=== PATIENT | female | born 1995 | race Caucasian/White ===

== ENCOUNTER 2018-01-26 02:49 | Outpatient (CLI) | payer BC, SELFPAY ==
--- NOTE | 2018-01-26 10:25 | MERGE_ITS ---
*[facility] [place]* *[facility]* [address] [place] [address] Date of study: 01/26/2018 Transthoracic Echocardiography M-mode, complete 2D, complete spectral Doppler, and color Doppler *STUDY CONCLUSIONS* Summary: 1. Left ventricle: The cavity size was normal. Wall thickness was normal. Systolic function was normal. The estimated ejection fraction was 60-65%. Wall motion was normal; there were no regional wall motion abnormalities. 2. Aortic valve: Trileaflet. 3. Aorta: The aorta was not dilated; however, the proximal ascending aorta was not well visualized. 4. Mitral valve: Structurally normal valve. 5. Right ventricle: The cavity size was normal. Wall thickness was normal. Systolic function was normal. 6. Pulmonary arteries: Systolic pressure could not be accurately estimated. 7. Pericardium, extracardiac: A trivial pericardial effusion was identified along the right ventricular free wall. *PATIENT PRESENTATION* Height: 152.4cm ((60in) ) S/D Pressure: 92 / 56 Weight: 63.5kg ((139.7lb) ) BSA: 1.66m^2 Test start time: 10:40 AM. Test stop time: 11:40 AM. 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 This study was interpreted by [facility]. Pertinent images and digital data are archived for permanent storage and are available for subsequent review. No prior study was available for comparison. Study status: Routine. Transthoracic echocardiography. M-mode, complete 2D, complete spectral Doppler, and color Doppler. A Transthoracic Echocardiogram was performed. Scanning was performed from the parasternal, apical, subcostal, and suprasternal notch acoustic windows. Images were obtained using an [id number] cardiac ultrasound machine. Study completion: The patient tolerated the procedure well. There were no complications. History: PMH: Systemic involvement of connective tissue. R/o aortic dilation, MVR: ? Connective tissue disorder. *CARDIAC ANATOMY* Left ventricle: The cavity size was normal. Wall thickness was normal. Systolic function was normal. The estimated ejection fraction was 60-65%. Wall motion was normal; there were no regional wall motion abnormalities. Diastolic parameters were normal. Aortic valve: Trileaflet; normal thickness leaflets. Mobility was not restricted. Doppler: Transvalvular velocity was within the normal range. There was no stenosis. There was no significant regurgitation. VTI ratio of LVOT to aortic valve: 0.79. Valve area (VTI): 2.2cm^2. Indexed valve area (VTI): 1.3cm^2/m^2. Peak velocity ratio of LVOT to aortic valve: 0.74. Valve area (Vmax): 2.1cm^2. Indexed valve area (Vmax): 1.3cm^2/m^2. Mean velocity ratio of LVOT to aortic valve: 0.88. Valve area (Vmean): 2.5cm^2. Indexed valve area (Vmean): 1.5cm^2/m^2. Mean gradient (S): 4.7mm Hg. Peak gradient (S): 8.9mm Hg. Aorta: The aorta was not dilated; however, the proximal ascending aorta was not well visualized. Aortic root: The aortic root was not dilated. Ascending aorta: The ascending aorta was poorly visualized. Aortic arch: The aortic arch was not dilated. Descending aorta: The descending aorta was not dilated. Abdominal aorta: The abdominal aorta was not dilated. Mitral valve: Structurally normal valve. Mobility was not restricted. No echocardiographic evidence for prolapse. Doppler: Transvalvular velocity was within the normal range. There was no evidence for stenosis. There was trivial regurgitation. Valve area by pressure half-time: 3.6cm^2. Indexed valve area by pressure half-time: 2.1cm^2/m^2. Peak gradient (D): 3.4mm Hg. Left atrium: The atrium was normal in size. Right ventricle: The cavity size was normal. Wall thickness was normal. Systolic function was normal. Pulmonic valve: Structurally normal valve. Doppler: Transvalvular velocity was within the normal range. There was no evidence for stenosis. There was trivial regurgitation. Peak gradient (S): 5.2mm Hg. Tricuspid valve: Structurally normal valve. Doppler: Transvalvular velocity was within the normal range. There was no evidence for stenosis. There was no significant regurgitation. Pulmonary artery: Systolic pressure could not be accurately estimated. Right atrium: The atrium was normal in size. Pericardium: A trivial pericardial effusion was identified along the right ventricular free wall. Systemic veins: Inferior vena cava: Well visualized. The vessel was patent and normal in size. The respirophasic diameter changes were in the normal range (greater than or equal to 50%). Baseline ECG: Normal sinus rhythm. Measurements Left ventricle Value Reference LV ID, ED, PLAX 3.9 cm 3.5 - 6.0 LV ID, ES, PLAX 2.7 cm 2.1 - 4.0 LV PW thickness, ED, PLAX 0.7 cm LV end-diastolic volume, 1-p A2C 44 ml LV ejection fraction, 1-p A2C 60 % LV end-diastolic volume, 1-p A4C 57 ml LV ejection fraction, 1-p A4C 61 % LV e', lateral 0.163 m/sec LV E/e', lateral 6 LV e', medial 0.125 m/sec LV E/e', medial 7 LV e', average 0.144 m/sec LV E/e', average 6 Ventricular septum Value Reference IVS thickness, ED, PLAX 0.8 cm LVOT Value Reference LVOT ID, A-P 1.9 cm LVOT area 2.8 cm^2 LVOT peak velocity, S 1.11 m/sec LVOT mean velocity, S 0.91 m/sec LVOT VTI, S 26.9 cm LVOT peak gradient, S 4.9 mm Hg LVOT mean gradient, S 3.5 mm Hg Stroke volume (SV), LVOT DP 75 ml Stroke index (SV/bsa), LVOT DP 45 ml/m^2 Aortic valve Value Reference Aortic valve peak velocity, S 1.5 m/sec Aortic valve mean velocity, S 1.02 m/sec Aortic valve VTI, S 34.0 cm Aortic mean gradient, S 4.7 mm Hg Aortic peak gradient, S 8.9 mm Hg VTI ratio, LVOT/AV 0.79 Aortic valve area, VTI 2.2 cm^2 Velocity ratio, peak, LVOT/AV 0.74 Aortic valve area, peak velocity 2.1 cm^2 Velocity ratio, mean, LVOT/AV 0.88 Aortic valve area, mean velocity 2.5 cm^2 Aortic valve area/bsa, mean velocity 1.5 cm^2/m^2 Aorta Value Reference Aortic root ID, ED 2.0 cm Ascending aorta ID, A-P, S 2.1 cm RVOT Value Reference RVOT VTI, S 21.6 cm Left atrium Value Reference LA ID, A-P, ES 3.2 cm LA ID/bsa, A-P 1.9 cm/m^2 <=2.2 LA area, ES, A4C 10.6 cm^2 8.8 - 23.4 LA area, ES, A2C 9 cm^2 LA volume/bsa, ES, 1-p A4C 15 ml/m^2 LA volume, ES, 2-p 19 ml LA volume/bsa, ES, 2-p 12 ml/m^2 LA/aortic root ratio 1.58 Mitral valve Value Reference Mitral E-wave peak velocity 0.93 m/sec Mitral A-wave peak velocity 0.35 m/sec Mitral deceleration time 214 ms 150 - 230 Mitral pressure half-time 62 ms Mitral peak gradient, D 3.4 mm Hg Mitral E/A ratio, peak 2.63 Mitral valve area, PHT, DP 3.6 cm^2 Pulmonary veins Value Reference Pulmonary vein peak velocity, S 0.52 m/sec Pulmonary vein peak velocity, D 0.78 m/sec Pulmonary vein velocity ratio, peak, 0.66 S/D Pulmonary vein A-wave reversal peak 0.32 m/sec velocity Tricuspid valve Value Reference Tricuspid regurg peak velocity 1.8 m/sec Tricuspid peak RV-RA gradient 12.4 mm Hg Right atrium Value Reference RA area, ES, A4C 8.7 cm^2 8.3 - 19.5 Pulmonic valve Value Reference Pulmonic peak gradient, S 5.2 mm Hg Legend: (L) and (H) mor values outside specified reference range. I have personally reviewed the images and have reviewed and edited the reported findings. Electronically signed by Kenton Beltran 01/26/2018 12:38
== END 2018-01-26 03:09 ==
PROVIDERS: PCP Nurse Practitioner Family; Visit Provider Nurse Practitioner Family
DX: M35.9 Systemic involvement of connective tissue, unspecified (principal); I34.0 Nonrheumatic mitral (valve) insufficiency; I31.3 Pericardial effusion (noninflammatory)
CPT/HCPCS: 93306

== ENCOUNTER 2018-06-27 08:46 | Outpatient (REF) | payer BC, SELFPAY | END 2018-06-27 09:06 | LOC: LBN 08:46 | PROVIDERS: PCP Nurse Practitioner Family; Visit Provider Nurse Practitioner Adult Health | DX: R35.0 Frequency of micturition (principal) | CPT/HCPCS: 87077; 87086; 87186 ==

== ENCOUNTER 2018-07-27 17:42 | Emergency (ER) | payer BC, SELFPAY ==
[2018-07-27] VITALS (24 sets, daily range): BP systolic 104–136; BP diastolic 53–75; PULSE 71–114; RESP 15–22; TEMP 36.4–36.6; O2SAT 98–100
--- NOTE | 2018-07-27 18:12 | W.ED.GENAD ---
Discharge Plan Disposition Patient Disposition: HOME Condition: Stable Discharge Details Chief Complaint: AMS/LOC Clinical Impression: Syncope Reason For Visit: fainted Primary Care Provider: Linda Hernandez ED Provider: Lisa Palomino Home Meds and New Rx's Prescriptions: No Action norgestimate-ethinyl estradiol [Ely] 0.25-35 mg-mcg tablet 1 tab PO DAILY RF: 0 multivitamin tablet 1 tab PO DAILY RF: 0 nitrofurantoin monohyd/m-cryst [Macrobid] 100 mg capsule 100 mg PO BID Qty: 14 RF: 0 Discharge Instructions Instructions: Holter Monitoring (ED), Syncope (ED) Additional Instructions: Please return immediately to the emergency department if you develop any new or worsening symptoms or if you become otherwise concerned. It is extremely important that you make an appointment to be seen in follow-up by your primary care doctor soon as possible Referrals: Linda Hernandez, CH[employer]ING [employer] OPERATOR [Primary Care Provider] - Discharge Data Discharge Date/Time-TO BE ENTERED AT DEPARTURE: 07/27/18 21:09 Medical Decision Making Rita Garcia is a 23 y/o woman with h/o jaquan-danlos syndrome, GERD who presented to the emergency department after syncopal episode while standing and having a new tattoo cleaned by her boyfriend, per patient this experience was not painful. She did have preceding symptoms. There was no trauma. On exam patient is very well and nontoxic appearing. She has benign neurologic exam is benign cardiopulmonary exam. Suspect orthostatic versus vasovagal syncope, possible arrthmia. Doubt PE, low risk. Exam/hx not c/w myocarditis, ACS, sepsis, acute aortic pathology. Plan for EKG, CXR, screening labs, IVF hydration, telemetry. CR CHEST 2 VIEWS PA,LAT 08/31/2017 11:49 PM FINDINGS: Lungs: Unremarkable. No consolidation. Pleural space: Unremarkable. No pleural effusion. No pneumothorax. Heart/Mediastinum: Unremarkable. No cardiomegaly. Bones/joints: Unremarkable. IMPRESSION: No acute findings. Labs non-diagnostic. EKG okay. CXR neg. Pt feeling much better, ambulating about the ED without issue, no further lightheadedness, taking PO without issue, states she is ready for d/c to home. Plan for zio patch. I had a lengthy discussion with the Pt re: RTED precautions and importance of outpt f/u. Pt verbalized understanding of the plan and was amenable. Medical Records Medical records reviewed: Yes I reviewed the patient's medical records. Lab Data Lab results reviewed: Yes I reviewed the patient's lab results. ECG Data Attestation: I personally reviewed and interpreted this ECG (s) as follows: Interpretation: EKG shows sinus rhythm at 85, normal axis, no acute ischemic changes, no HOCM, no Brugada, no WPW, no long QT, nondiagnostic EKG HPI General Mode of arrival: ambulatory. Date/Time Provider Initiated Documentation: 07/27/18 18:12. Limitations to Documentation: no limitations. Information obtained by: patient, RN notes reviewed and old records reviewed. HPI Narrative: Rita Garcia is a 23 y/o woman with history of Jaquan-Danlos syndrome, GERD presenting to the emergency department with syncope. Patient reports that she has been feeling tired today but otherwise in her usual state of health. She got a tattoo earlier in the day. Several hours later she was at home standing in the kitchen with her boyfriend, who was washing the tattoo which is on her right upper back. Patient reports that while her boyfriend was watching a tattoo, she developed tunnel vision, ringing in her ears, nausea and began to feel lightheaded as if she would faint. Patient reports that she told her boyfriend she was feeling this way, at which point she lost consciousness and he caught her and lowered her to the ground. Her boyfriend accompanies her, and reports that patient was unconscious for less than a minute. There was no postictal state afterwards. No tongue biting or incontinence. Patient reports that she has not fainted in the past. She denies palpitations or any pain preceding the syncopal episode. Patient reports that she currently feels somewhat nauseous and lightheaded. She denies any pain, vomiting, fever, rash, focal weakness, shortness of breath, cough. No recent illness, has been in her usual state of health. No recent travel. Patient reports that she has never had lightheadedness, palpitations, chest pain, or unusual shortness of breath during exertion. Her mother did of sudden cardiac at age 50. Related Data Home Medications Medication Instructions Recorded Confirmed multivitamin tablet 1 tab PO DAILY 08/03/18 08/03/18 nitrofurantoin 100 mg PO BID #14 cap 08/03/18 08/03/18 monohydrate/macrocrystals 100 mg capsule norgestimate 0.25 mg-ethinyl 1 tab PO DAILY 08/03/18 08/03/18 estradiol 35 mcg tablet Previous Rx's Medication Instructions Recorded nitrofurantoin 100 mg PO BID #14 cap 08/03/18 monohydrate/macrocrystals 100 mg capsule Allergies Allergy/AdvReac Type Severity Reaction Status Date / Time Sulfa (Sulfonamide Allergy Intermediate Hives Verified 08/03/18 09:02 Antibiotics) almond AdvReac Intermediate hives/itchy Verified 08/03/18 09:02 /cranky ciprofloxacin [From Cipro] AdvReac Mild Verified 08/03/18 09:02 General Stated Complaint: AMS/LOC CRISTINA: 2 Review of Systems Review of Systems Constitutional: denies fevers Eyes: denies eye pain ENT: denies facial pain, dental pain, sore throat Cardiovascular: denies chest pain, edema, Reports syncope Respiratory: denies SOB, cough GI: denies abdominal pain, vomiting, diarrhea : denies flank pain MSK: denies back pain, neck pain, arthralgias, myalgias Skin: denies rash Neuro: denies headaches, numbness, weakness PFSH Medical History Jaquan-Danlos syndrome (Chronic) Anxiety Chronic uveitis of both eyes Depression Recurrent urinary tract infection Social History Smoking/Tobacco Use Status: Never Alcohol Intake: current Alcohol Intake frequency: holidays/special occasions only Drug use: Never Substance use type: does not use Adopted: No Caregiver/Support person: No Foster care: No Household members: significant other Housing: house Number of Children: 0 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[employer] Sexually active: Yes Current gender identity: female Seatbelt use: always Do you feel safe in your relationship?: Yes Exam Narrative Exam Narrative: Constitutional: well and [id number], pleasant, conversing normally HENT: head atraumatic/normocephalic/normal inspection, mucous membranes moist Eyes: conjunctiva normal, sclera normal, pupils 3mm b/l Neck: no stridor, normal ROM, trachea midline Chest: normal inspection Resp: normal work of breathing, LCTAB Cardio: normal rate, normal rhythm, no murmur appreciated GI: abdomen soft, non-tender, non-distended Back: normal inspection, no rash, acute right upper back without erythema or drainage Skin: warm, dry, normal color, no rash Neuro: alert, not altered, grossly non-focal, normal tone Ext: no edema, no posterior calf tenderness to palpation Psych: normal mood, normal affect, normal behavior Course Vital Signs Temperature 36.6 C 07/27/18 17:54 Pulse 80 07/27/18 17:54 Respiratory Rate 16 07/27/18 17:54 Blood Pressure 136/66 07/27/18 17:54 Pulse Oximetry 100 07/27/18 17:54 Temperature 36.6 C 07/27/18 17:54 Temperature Source Temporal Artery Scan 07/27/18 17:54 Pulse 80 07/27/18 17:54 Respiratory Rate 16 07/27/18 17:54 Respiratory Effort 07/27/18 17:57 Blood Pressure 136/66 07/27/18 17:54 Blood Pressure Position Supine 07/27/18 17:54 Pulse Oximetry 100 07/27/18 17:54 Oxygen Delivery Method Room Air 07/27/18 17:54 Oxygen Flow Rate 0 07/27/18 17:54 Pain Level 0 07/27/18 17:54
[2018-07-27 19:01] LABS: Abs Immature Grans 0.04 k/cumm (0.0-0.09); Absolute Basophil Count 0.05 k/cumm (0.0-0.2); Absolute Eosinophil Count 0.55 k/cumm (0.0-0.7); Absolute Monocyte Count 1.31 k/cumm (0.11-0.7); Basophils % 0.3; Eosinophils % 3.5; HCT 41.8 % (36.0-46.0); HGB 14.3 g/dL (12.0-15.5); Immature Grans % 0.3; Lymphocytes % 14.1; Mean Corp. HGB Concentration 34.2 g/dL (32.0-36.0); Mean Corpuscular Hemoglobin 31.3 pg (27.0-33.0); Mean Corpuscular Volume 91.5 fL (80-95); Mean Platelet Volume 11.4 fL (8.0-11.0); Monocytes % 8.3; Neutrophils % 73.5; Platelet Count 266 x1000/uL (130-400); RBC 4.57 m/cumm (4.00-5.20); White Blood Cell Count 15.78 k/cumm (4.4-10.8)
[2018-07-27 19:03] LABS: Absolute Lymphocyte Count 2.22 k/cumm (1.2-3.4)
[2018-07-27 19:16] LABS: ALT 17 U/L (12-78); AST 14 U/L (15-37); Albumin 3.5 g/dL (3.4-5.0); Alkaline Phosphatase 85 U/L (46-116); Anion Gap 8.3 mmol/L (3-11); BUN 18 mg/dL (7-18); Bilirubin, Total 0.8 mg/dL (0.2-1.0); CO2 27.7 mmol/L (21.0-32.0); CREATININE 0.83 mg/dL (0.55-1.02); Calcium 8.4 mg/dL (8.5-10.1); Chloride 104 mmol/L (98-107); Glucose 97 mg/dL (70-100); Potassium 3.7 mmol/L (3.5-5.1); Sodium 140 mmol/L (136-145); Total Protein 7.2 g/dL (6.4-8.2)
[2018-07-27 19:20] LABS: D-Dimer 357 ng/mlFEU (<500)
[2018-07-27 19:41] LABS: Bilirubin Negative (Negative); Blood Trace-lysed (Negative); Clarity Clear; Glucose Negative (Negative); Ketones Negative (Negative); Leukocyte Esterase Negative (Negative); Nitrite Negative (Negative); Specific Gravity >= 1.030 (1.005-1.025); Urobilinogen 0.2 EU/dL (Up TO 0.2); pH 5.5 (5-8)
[2018-07-27 19:50] LABS: Bacteria Rare HPF (Negative); C & S Indicated? No; Casts Negative LPF (Negative); Crystals Negative HPF (Negative); Epithelial Cells Negative HPF (Negative); Mucus Negative (Negative); Other Cells Negative (Negative); RBC 0-2 (0-2); WBC Negative HPF (0-5)
--- NOTE | 2018-07-27 20:00 | DI.RAD_ITS ---
SYMPTOM/DIAGNOSIS: SYNCOPE CHEST, PA AND LATERAL: Comparison 08/31/17 The heart is normal in size. The lungs are clear. The mediastinal structures and pleura appear intact. CONCLUSION: Normal chest.
--- NOTE | 2018-07-27 20:37 | DI.VRAD_ITS ---
EXAM: XR Chest, 2 Views EXAM DATE/TIME: 07/27/2018 6:40 PM CLINICAL HISTORY: 23 years old, female; Signs and symptoms; Other: Syncope; Additional info: Not . TECHNIQUE: XR of the chest, 2 views. COMPARISON: CR CHEST 2 VIEWS PA,LAT 08/31/2017 11:49 PM FINDINGS: Lungs: Unremarkable. No consolidation. Pleural space: Unremarkable. No pleural effusion. No pneumothorax. Heart/Mediastinum: Unremarkable. No cardiomegaly. Bones/joints: Unremarkable. IMPRESSION: No acute findings. Dictated and Authenticated by: Chapin Cohen MD. Ordering:CRESENCIO Gonzalez MD
[2018-07-27] MEDS: Ondansetron 4 MG/2 ML VIAL IVP (20:56)
--- NOTE | 2018-08-08 10:24 | ZIOP_ITS ---
DATE OF DICTATION: August 08, 2018 [facility] MONITOR REPORT MONITOR IN PLACE 3 days, 19 hours, July 27-2018 Baseline rhythm sinus. Rare single PAC. No SVT or atrial fibrillation. Rare single PVC. No VT. No bradycardia or block. Eight triggered events, all occurring during sinus rhythm 85-130 bpm. Eight symptomatic episodes recorded. Lightheadedness, dizziness, pounding, shortness of breath, anxi ous, chest pain/pressure, all noted during sinus rhythm 80-130 bpm. Average heart rate sinus 82 bpm, range 46-164 bpm.
== END 2018-07-27 21:09 | disposition home or self-care (01) ==
PROVIDERS: Emergency Provider Student in an Organized Health Care Education/Training Program; PCP Nurse Practitioner Family
DX: R55 Syncope and collapse (principal)
CPT/HCPCS: 0296T; 36415; 80053; 93005; 96374; 99285; 71046; 81003; 81015; 85025; 85379; 93010; J2405

== ENCOUNTER 2018-08-03 11:12 | Outpatient (REF) | payer BC, SELFPAY | END 2018-08-03 11:32 | LOC: LBN 11:12 | PROVIDERS: PCP Nurse Practitioner Family; Visit Provider Nurse Practitioner Family | DX: N39.0 Urinary tract infection, site not specified (principal) | CPT/HCPCS: 87077; 87086; 87186 ==

== ENCOUNTER 2018-09-14 11:29 | Outpatient (REF) | payer BC, SELFPAY ==
[2018-09-14 11:56] LABS: Bilirubin Negative (Negative); Blood Negative (Negative); Clarity Cloudy; Glucose Negative (Negative); Ketones Trace mg/dL (Negative); Leukocyte Esterase Small (Negative); Nitrite Positive (Negative); Specific Gravity >= 1.030 (1.005-1.025); Urobilinogen 0.2 EU/dL (Up TO 0.2); pH 5.5 (5-8)
[2018-09-14 12:20] LABS: Epithelial Cells Few HPF (Negative); RBC Negative (0-2)
[2018-09-14 12:21] LABS: C & S Indicated? C&S Done As Ordered; Crystals Moderate Amorphous HPF (Negative); Mucus Trace (Negative)
== END 2018-09-14 11:49 ==
LOC: LBN 11:29
PROVIDERS: PCP Nurse Practitioner Family; Visit Provider Nurse Practitioner Gerontology
DX: N39.0 Urinary tract infection, site not specified (principal)
CPT/HCPCS: 87077; 81003; 81015; 87086; 87186

== ENCOUNTER 2018-10-30 16:52 | Emergency (ER) | payer BC, SELFPAY ==
[2018-10-30 17:00] VITALS: BP 115/56; PULSE 79; RESP 18; TEMP 37; O2SAT 100
[2018-10-30 17:04] LABS: Bilirubin Negative (Negative); Blood Negative (Negative); Clarity Clear; Glucose 100 mg/dL (Negative); Ketones Negative (Negative); Leukocyte Esterase Trace (Negative); Nitrite Positive (Negative)
--- NOTE | 2018-10-30 17:12 | ED.GENADUL_ITS ---
Discharge Plan Disposition Patient Disposition: HOME Condition: Stable Discharge Details Chief Complaint: Urinary Clinical Impression: Recurrent UTI (urinary tract infection) Primary Care Provider: Linda Hernandez ED Provider: Constantine Wasserman Home Meds and New Rx's Prescriptions: New nitrofurantoin monohyd/m-cryst [Macrobid] 100 mg capsule 100 mg PO BID Qty: 10 RF: 0 Continued norgestimate-ethinyl estradiol [Ely] 0.25-35 mg-mcg tablet 1 tab PO DAILY RF: 0 multivitamin tablet 1 tab PO DAILY RF: 0 albuterol sulfate 90 mcg/actuation HFA aerosol inhaler 2 puff IH Q6H PRN (Reason: shortness of breath or wheezing) Qty: 8.5 RF: 5 Discharge Instructions Instructions: Urinary Tract Infection in Women (ED) Additional Instructions: Please continue to stay well-hydrated and follow-up with urology as needed. Take antibiotic until fully complete and feel free to return to the emergency department for any new or significant worsening of symptoms or any further concerns you may have. Stand Alone Forms: Work Release Referrals: Bernabe Peace MD [ [facility] STAFF PHYSICIAN] - (As needed for reassessment) Medical Decision Making Patient presenting to the emergency department for concern of urinary tract infection. Patient has a long ongoing history of recurrent urinary tract infections which have seen her multiple times for in the past. Patient states 3 days ago she had some intermittent nausea that she thought was may be a GI illness. Then yesterday she had persistent subjective fevers and nausea and then awoke this morning with burning urination. Patient states burning urination is similar to when she has had urinary tract infections in the past. She denies any vomiting or diarrhea, belly pain, or any other associated symptoms. Physical exam is unremarkable and shows no CVA tenderness patient is nontoxic and stable. Urinalysis shows concerning findings for urinary tract infection with positive nitrate, trace leukocytes, and WBCs of 10-20. Given this is similar in nature to patient's previous episodes patient was started on Macrobid. Patient also does state significant discomfort and is already taking AZO [id number]. Patient was dispensed diclofenac for any further discomfort. Return precautions were discussed. After discussion of diagnosis and plan of care patient has no further needs, questions, or concerns and states clear understanding to return to the emergency department for any worsening symptoms. HPI General Mode of arrival: ambulatory . Date/Time Provider Initiated Documentation: 10/30/18 17:09 . Limitations to Documentation: no limitations . Information obtained by: patient and RN notes reviewed . History of Present Illness 23 year old F presents to the emergency department with the chief complaint of UTI-burning urination, described as moderate and similar to prior episodes, with intensity rated at 7. Quality is described as burning, and is localized to the genitals (With urination). Patient started experiencing this day(s) (3) and it has been constant. No relieving factors improve symptom(s), No exacerbating factors reported . Patient notes no other symptoms.. Patient did receive the following treatments prior to arrival, none Related Data Home Medications Medication Instructions Recorded Confirmed multivitamin tablet 1 tab PO DAILY 08/03/18 10/30/18 norgestimate 0.25 mg-ethinyl 1 tab PO DAILY 08/03/18 10/30/18 estradiol 35 mcg tablet albuterol sulfate HFA 90 2 puff IH Q6H PRN #8.5 gm 10/11/18 10/30/18 mcg/actuation aerosol inhaler nitrofurantoin monohyd/m-cryst 100 mg PO BID #10 cap 10/30/18 [Macrobid] Previous Rx's Medication Instructions Recorded albuterol sulfate HFA 90 2 puff IH Q6H PRN #8.5 gm 10/11/18 mcg/actuation aerosol inhaler nitrofurantoin monohyd/m-cryst 100 mg PO BID #10 cap 10/30/18 [Macrobid] Allergies Allergy/AdvReac Type Severity Reaction Status Date / Time Sulfa (Sulfonamide Allergy Intermediate Hives Verified 10/30/18 17:05 Antibiotics) almond AdvReac Intermediate hives/itchy Verified 10/30/18 17:05 /cranky ciprofloxacin [From Cipro] AdvReac Mild Verified 10/30/18 17:05 General Stated Complaint: Urinary CRISTINA: 4 Review of Systems Constitutional Denies body ache(s), Denies chills, Reports fever(s) and Denies malaise Cardiovascular Denies chest pain Respiratory Reports system reviewed and no additional complaints, except as docu Gastrointestinal Denies abdominal pain, Reports nausea and Denies vomiting Genitourinary Reports as per HPI, Denies hematuria, Reports dysuria and Reports urinary urgency Neurologic Denies confusion Psychiatric Denies confusion REPLACED BY [facility] Medical History Jaquan-Danlos syndrome (Chronic) Anxiety Chronic uveitis of both eyes Depression Recurrent urinary tract infection Surgical History Fractured 5th Toe Family History Mother Dysmenorrhea Migraines Hyperlipidemia Sudden cardiac Father Factor V Leiden Mental disorder Thyroid disease Maternal Grandfather Essential hypertension Diverticulitis Hyperthyroidism Maternal Grandmother Hyperthyroidism Seizure disorder Paternal Grandfather Heart disease Hyperlipidemia Mental disorder Myocardial infarction Paternal Grandmother Hyperthyroidism Neoplasm Glaucoma Other Hypothyroid Social History Smoking/Tobacco Use Status: Never Alcohol Intake: current Alcohol Intake frequency: holidays/special occasions only Drug use: Never Substance use type: does not use Adopted: No Caregiver/Support person: No Foster care: No Household members: significant other Housing: house Number of Children: 0 Communication Needs: None Education Level: college Details: Current [employer] Do you need help understanding health information?: Rarely 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[employer] Sexually active: Yes Current gender identity: female What type of physical activity do you participate in: walking Duration: 30-45 minutes/day Frequency: 1-2 times per week Seatbelt use: always Do you feel safe at home: Yes Do you feel safe in your relationship?: Yes Exam Const General: cooperative and no acute distress Orientation: alert, awake and oriented x3 Resp Effort & Inspection: normal respiratory effort and able to speak in complete sentences Auscultation: clear to auscultation bilaterally Cardio Rate: regular rate Rhythm: regular rhythm Heart Sounds: S1 normal and S2 normal Back/Spine/Pelvis Back: no CVA tenderness Neuro General: alert, awake and oriented x3 Extrem General: normal capillary refill Course Vital Signs Temperature 37 C 10/30/18 17:00 Pulse 79 10/30/18 17:00 Respiratory Rate 18 10/30/18 17:00 Blood Pressure 115/56 L 10/30/18 17:00 Pulse Oximetry 100 10/30/18 17:00 Temperature 37 C 10/30/18 17:00 Temperature Source Oral 10/30/18 17:00 Pulse 79 10/30/18 17:00 Respiratory Rate 18 10/30/18 17:00 Respiratory Effort Non-Labored 10/30/18 17:00 Blood Pressure 115/56 L 10/30/18 17:00 Blood Pressure Position Sitting 10/30/18 17:00 Pulse Oximetry 100 10/30/18 17:00 Oxygen Delivery Method Room Air 10/30/18 17:00 Oxygen Flow Rate 0 10/30/18 17:00 Pain Level 7 10/30/18 17:06 Lab/Test Results Lab/Test Results: POC- Test(urine) Negative
[2018-10-30 17:15] LABS: Bacteria Rare HPF (Negative); C & S Indicated? Yes; Casts Negative LPF (Negative); Crystals Negative HPF (Negative); Epithelial Cells Negative HPF (Negative); Mucus Negative (Negative); Other Cells Negative (Negative); RBC 0-2 (0-2)
[2018-10-30] MEDS: MacroBID 100 MG CAP PO (17:38)
== END 2018-10-30 18:04 | disposition home or self-care (01) ==
PROVIDERS: Emergency Provider Nurse Practitioner Family; PCP Nurse Practitioner Family
DX: N39.0 Urinary tract infection, site not specified (principal); Z87.440 Personal history of urinary (tract) infections
CPT/HCPCS: 81025; 87077; 99283; 81003; 81015; 87086; 87186

== ENCOUNTER 2018-11-23 13:10 | Outpatient (REF) | payer BC, SELFPAY | END 2018-11-23 13:30 | LOC: LBN 13:10 | PROVIDERS: PCP Nurse Practitioner Family; Visit Provider Nurse Practitioner Gerontology | DX: N39.0 Urinary tract infection, site not specified (principal) | CPT/HCPCS: 87077; 87086; 87186 ==

== ENCOUNTER 2019-02-23 13:26 | Outpatient (CLI) | payer BC, SELFPAY ==
[2019-02-23 15:32] LABS: HCG Quant, Pregnancy 5481 mIU/mL (1-3)
== END 2019-02-23 13:46 ==
PROVIDERS: PCP Nurse Practitioner Family; Visit Provider Nurse Practitioner Family
DX: N93.9 Abnormal uterine and vaginal bleeding, unspecified (principal)
CPT/HCPCS: 36415; 84702

== ENCOUNTER 2019-02-24 20:44 | Observation (INO) | payer BC, SELFPAY ==
[2019-02-24 20:51] VITALS: BP 143/83; PULSE 98; RESP 22; TEMP 36.7; O2SAT 100
--- NOTE | 2019-02-24 21:02 | DI.US_ITS ---
EXAM: US PELVIS TRANSVAGINAL CLINICAL HISTORY: LLQ pain, +hcg, -intrauterine . TECHNIQUE: Ultrasound performed using standard protocol. COMPARISON: Cardiac from 01/26/2018 FINDINGS: Ultrasound was performed transabdominally and transvaginally. There is no evidence of intrauterine g estation. Endometrial stripe is about 3 millimeters in thickness. There is a left adnexal mixed ech ogenicity mass which is highly vascular and has us central lucent region in this solid mass. There i s lacy increased echogenicity within the cyst cystic region. No definite cardiac activity seen. Kidneys are unremarkable in appearance. No free fluid identified in the cul-de-sac. IMPRESSION: No evidence of intrauterine gestation. Findings suspicious for left tubal ectopic . Please correlate with serial beta HCG levels a nd repeat ultrasound.
[2019-02-24] MEDS: Acetaminophen 500 MG TAB 1000 MG PO (21:10)
--- NOTE | 2019-02-24 21:11 | W.ED.GENAD ---
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 She is presenting today with chief complaint of left lower quadrant pain. She reports that she was scheduled to have an IUD placed Yesterday. However, when they did there is screening for they found this was positive. A quantitative hCG was ordered.she then went today to be [facility] as she was hoping to terminate . However, at that time they were unable to find a intrauterine . She was not evaluated further for possible ectopic. However, a quantitative hCG was repeated. She is unclear as what the value was at that time. States that throughout the course the day. She was instructed by them to seek care urgently with any signs of ectopic. She is presenting today with increased left lower quadrant pain, feeling of having chills, nausea, weakness and describing presyncope. States that she has been having constant left lower back pain is progressive and increasing. The left lower quadrant abdominal pain is fairly intermittent. Rates the pain a 7 out of 10. Currently endorsing nausea. No previous pregnancies. No history of STDs. No abdominal surgeries. Patient does have history of Jaquan-Danlos and was treated with several years of methotrexate for chronic uveitis. On exam, she is tearing and appears uncomfortable. She does have left lower quadrant pain but no rebound tenderness or guarding. No peritoneal findings. She slightly tachycardic at 98, blood pressure elevated 143/83. I am concerned for ectopic at this point. Will obtain labs and transvaginal ultrasound. Patient given Zofran, morphine and IV fluids. Kept n.p.o. while here. At the end of my shift, care was transitioned to Dr. Michaels with labs and imaging pending. Concern for ectopic. <Chapin Michaels MD - Last Filed: 02/24/19 23:55> pt signed out to me pending u/s results. The u/s shows likely ectopic with left adnexal mass. She remains HD stable. Consulted with Dr. Perez from OBGYN who evaluated the patient and is going to take the patient to the OR. Imaging Data Radiologic Study: Attestation: I personally reviewed and interpreted this imaging study as follows: Imaging: Ultrasound Radiologist's impression: IMPRESSION: 1. No intrauterine . 2. Left adnexal mass with hyperemic ring worrisome for ectopic . It measures 2.5 x 2.4 by 2.1 cm . Lab Data Lab results reviewed: Yes I reviewed the patient's lab results. HPI <STEVENSON Birch - Last Filed: 02/25/19 08:05> General Mode of arrival: ambulatory. Date/Time Provider Initiated Documentation: 02/24/19 20:46. Limitations to Documentation: no limitations. Information obtained by: patient and RN notes reviewed. History of Present Illness 23 year old F presents to the emergency department with the chief complaint of LLQ pain, described as moderate, with intensity rated at 7. Quality is described as aching, and is localized to the abdomen. Patient reports radiation to back. Patient started experiencing this day(s) and it has been constant. No relieving factors improve symptom(s), No exacerbating factors reported . Patient notes fever/chills (chills) and nausea/vomiting (nausea, no vomiting); denies chest pain, cough, loss of appetite, rash, shortness of breath and weakness. Patient did receive the following treatments prior to arrival, none Related Data Home Medications Medication Instructions Recorded Confirmed norgestimate 0.25 mg-ethinyl 1 tab PO DAILY 08/03/18 02/24/19 estradiol 35 mcg tablet albuterol sulfate 90 mcg/actuation 2 puff IH Q6H PRN #8.5 gm 10/11/18 02/24/19 aerosol inhaler multivitamin 2 tab PO DAILY tab 02/23/19 02/24/19 Previous Rx's Medication Instructions Recorded albuterol sulfate 90 mcg/actuation 2 puff IH Q6H PRN #8.5 gm 10/11/18 aerosol inhaler Allergies Allergy/AdvReac Type Severity Reaction Status Date / Time Sulfa (Sulfonamide Allergy Intermediate Hives Verified 02/24/19 20:54 Antibiotics) almond AdvReac Intermediate hives/itchy Verified 02/24/19 20:54 /clementine ciprofloxacin [From Cipro] AdvReac Mild Verified 02/24/19 20:54 General Stated Complaint: Abd Prob CRISTINA: 2 Review of Systems <STEVENSON Birch - Last Filed: 02/25/19 08:05> Constitutional Constitutional: Reports as per HPI, Reports chills, Denies fatigue, Denies fever(s) and Denies headache(s) ENT Ears, Nose, Mouth, and Throat: Denies headache(s) Cardiovascular Cardiovascular: Reports as per HPI, Denies chest pain and Denies dyspnea Respiratory Respiratory: Reports as per HPI, Denies cough and Denies dyspnea Gastrointestinal Gastrointestinal: Reports as per HPI Genitourinary Genitourinary: Reports as per HPI, Reports abnormal vaginal bleeding, Denies hematuria, Denies dysuria, Reports pelvic pain, Denies flank pain, Denies urinary incontinence and Denies urinary urgency Musculoskeletal Musculoskeletal: Reports as per HPI and Reports back pain Integumentary/Breasts Skin/Breast: Reports as per HPI and Denies rash Neurologic Neurologic: Reports as per HPI and Denies headache(s) Endocrine Endocrine: Denies fatigue PFSH <STEVENSON Birch - Last Filed: 02/25/19 08:05> Medical History Anxiety Chronic uveitis of both eyes Depression 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, 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 sub-type) 01/18/2018 [facility] Genetics consult Recurrent urinary tract infection Surgical History Fractured 5th Toe Left Foot Social History Smoking/Tobacco Use Status: Never Alcohol Intake: current Alcohol Intake frequency: holidays/special occasions only Drug use: Never Substance use type: does not use Adopted: No Caregiver/Support person: No Foster care: No Household members: significant other Housing: house Number of Children: 0 Communication Needs: None Education Level: college Details: Current Ar[employer] Do you need help understanding health information?: Rarely 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[employer] Sexually active: Yes Current gender identity: female What type of physical activity do you participate in: walking Duration: 30-45 minutes/day Frequency: 1-2 times per week Seatbelt use: always Do you feel safe at home: Yes Do you feel safe in your relationship?: Yes Exam <STEVENSON Birch - Last Filed: 02/25/19 08:05> Const General: cooperative, healthy appearing, no acute distress, well developed and anxious (appears teary and uncomfortable) Nutritional Appearance: average body habitus and well nourished Orientation: alert and awake HENWI Head: normal to inspection Mouth: moist mucous membranes Resp Effort & Inspection: normal respiratory effort, able to speak in complete sentences and no respiratory distress Auscultation: clear to auscultation bilaterally, no rales, no rhonchi and no wheezes Cardio Rate: regular rate Rhythm: regular rhythm Heart Sounds: S1 normal and S2 normal GI Inspection: normal to inspection, no edema, non-distended, no incisions, no scars, no visible herniation and no visible pulsation Palpation: soft, no hepatosplenomegaly, not firm, no guarding, no hernias, no masses, not rigid and tender in the LLQ; with no rebound tenderness Percussion: normal to percussion Auscultation: hypoactive bowel sounds Back/Spine/Pelvis Back: no CVA tenderness Skin General skin exam: no rashes or lesions noted Trauma: no lacerations or abrasions Neuro General: alert and awake Cognition: normal cognition Speech: speech normal Gait: normal gait Psych Appearance: grossly normal and well kempt Mental Status: mental status grossly normal Speech and Movement: speech and movement normal Course <STEVENSON Birch - Last Filed: 02/25/19 08:05> Vital Signs Vital signs: Vital Signs Temperature 36.7 C 02/24/19 20:51 Pulse 98 H 02/24/19 20:51 Respiratory Rate 22 02/24/19 20:51 Blood Pressure 143/83 H 02/24/19 20:51 Pulse Oximetry 100 02/24/19 20:51 Temperature 36.7 C 02/24/19 20:51 Temperature Source Skin 02/24/19 20:51 Pulse 98 H 02/24/19 20:51 Respiratory Rate 22 02/24/19 20:51 Respiratory Effort 02/24/19 20:55 Blood Pressure 143/83 H 02/24/19 20:51 Blood Pressure Position Sitting 02/24/19 20:51 Pulse Oximetry 100 02/24/19 20:51 Oxygen Delivery Method Room Air 02/24/19 20:51 Oxygen Flow Rate 0 02/24/19 20:51 Pain Level 7 02/24/19 21:10 Sign Out <STEVENSON Birch - Last Filed: 02/25/19 08:05> Sign Out Data: Sign Out Comment: Care transitioned to Dr. Michaels. Patient in DI currently. Concerned for ectopic Last updated by Pat Gonzalez PA at 02/24/19 22:14
[2019-02-24] MEDS: Ondansetron 4 MG/2 ML VIAL IVP ×2 (21:22→23:19)
[2019-02-24] MEDS: Normal Saline 1,000 ML 1000 ML IV (21:22)
[2019-02-24 21:35] LABS: Abs Immature Grans 0.03 k/cumm (0.0-0.09); Absolute Basophil Count 0.08 k/cumm (0.0-0.2); Absolute Eosinophil Count 0.25 k/cumm (0.0-0.7); Absolute Lymphocyte Count 3.35 k/cumm (1.2-3.4); Absolute Monocyte Count 0.94 k/cumm (0.11-0.7); Absolute Neutrophil Count 4.73 k/cumm (1.2-6.7); Basophils % 0.9; Eosinophils % 2.7; HCT 40.7 % (36.0-46.0); HGB 13.6 g/dL (12.0-15.5); Immature Grans % 0.3; Lymphocytes % 35.7; Mean Corp. HGB Concentration 33.4 g/dL (32.0-36.0); Mean Corpuscular Hemoglobin 30.8 pg (27.0-33.0); Mean Corpuscular Volume 92.3 fL (80-95); Mean Platelet Volume 11.2 fL (8.0-11.0); Neutrophils % 50.4; Platelet Count 339 x1000/uL (130-400); RBC 4.41 m/cumm (4.00-5.20); RBC Distribution Width 12.2 % (11.7-14.6); White Blood Cell Count 9.38 k/cumm (4.4-10.8)
[2019-02-24 21:44] LABS: Bilirubin Negative (Negative); Blood Large (Negative); Clarity Clear (Clear); Glucose Negative (Negative); Ketones Negative (Negative); Leukocyte Esterase Negative (Negative); Nitrite Negative (Negative); Urobilinogen 0.2 EU/dL (Up TO 0.2); pH 5.5 (5-8)
[2019-02-24 21:53] LABS: Bacteria Negative HPF (Negative); C & S Indicated? No; Casts Negative LPF (Negative); Crystals Negative HPF (Negative); Epithelial Cells Moderate HPF (Negative); Mucus Negative (Negative); RBC 20-50 (0-2); WBC 0-2 HPF (0-5)
[2019-02-24 22:08] LABS: ALT 16 U/L (14-59); AST 14 U/L (15-37); Albumin 3.9 g/dL (3.4-5.0); Alkaline Phosphatase 102 U/L (46-116); Anion Gap 10.7 mmol/L (3-11); BUN 10 mg/dL (7-18); Bilirubin, Total 0.5 mg/dL (0.2-1.0); CO2 27.3 mmol/L (21.0-32.0); CREATININE 0.71 mg/dL (0.55-1.02); Calcium 9.1 mg/dL (8.5-10.1); Chloride 102 mmol/L (98-107); Glucose 89 mg/dL (70-100); Potassium 3.4 mmol/L (3.5-5.1); Sodium 140 mmol/L (136-145); Total Protein 8.3 g/dL (6.4-8.2)
[2019-02-24 22:09] LABS: HCG Quant, Pregnancy 4256 mIU/mL (1-3)
[2019-02-24 23:18] VITALS: BP 110/66; PULSE 113; RESP 18; O2SAT 98
--- NOTE | 2019-02-24 23:21 | DI.VRAD_ITS ---
PROCEDURE INFORMATION: Exam: US FIRST TRIMESTER FIRST GEST and US , Transvaginal Exam date and time: 02/24/2019 9:03 PM Clinical history: 23 years old, female; Other: Left-sided pelvic pain and vaginal bleeding. ; Patient HX: Llq pain with + hcg, [facility]. TECHNIQUE: Imaging protocol: Real-time transabdominal obstetrical ultrasound of the maternal pelvis and a first trimester with image documentation. COMPARISON: US RENAL ULTRASOUND(P) 05/07/2017 11:10 AM FINDINGS: Other findings: Left ovary 2.6 x 1.6 x 1.2 cm; Right ovary 1.6 x 1.2 x 1.5 cm GESTATION: Gestation: No intrauterine . Left adnexal mass with hyperemic ring worrisome for ectopic . It measures 2.5 x 2.4 by 2.1 cm . Abdomen: Right kidney 9.4 cm. No hydronephrosis. Small amount of free fluid in the posterior cul-de-sac MATERNAL: Uterus: Endometrium 3.3 mm Uterus 6.6 x 3.2 x 4.6 cm IMPRESSION: 1. No intrauterine . 2. Left adnexal mass with hyperemic ring worrisome for ectopic . It measures 2.5 x 2.4 by 2.1 cm . THIS REPORT CONTAINS FINDINGS THAT MAY BE CRITICAL TO PATIENT CARE. The findings were verbally communicated via telephone conference with Dr. Perez at 11:20 PM EDT on 02/24/2019. The findings were acknowledged and understood. Dictated and Authenticated by: Mateusz Moreira MD. Ordering:TAMIKA Stewart MD
--- NOTE | 2019-02-24 23:50 | HPE_ITS ---
Date of service: 02/24/19 Time of Service: 23:50 Assessment and Plan Assessment and plan (1) Ectopic : Status: Acute Assessment and plan: I reviewed options with the patient. My recommendation is to proceed with laparoscopy. We did discuss salpingostomy as an option and risks related to that including recurrent ectopic . The patient is adamant that we proceed with salpingectomy even if the opposite fallopian tube is abnormal and even at the risk of her fertility. Risks of surgery were reviewed with the patient including hemorrhage, infection and injury to other organs such as bowel and bladder. All questions were answered to the patient's satisfaction and consent for surgery was obtained. History of Present Illness History of Present Illness Chief Complaint: LLQ pain Consults Consult date: 02/24/19 Requesting physician: Chapin Michaels Narrative: 23 year old presents to the emergency dept with complaint of acute onset of LLQ pain. The patient was found to have a positive urine test in the clinic and [facility] felt that she was having a miscarriage. On her presentation she did have a pelvic ultrasound that demonstrated a left adnexal mass with free fluid suspicious for ectopic . The patient did have a moderate degree of pain and did require IV pain medication for management. The patient's medical history is significant for Ehler's Danlos syndrome. 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, 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 sub-type) 01/18/2018 [facility] Genetics consult Recurrent urinary tract infection Surgical History Fractured 5th Toe Left Foot Social History Smoking/Tobacco Use Status: Never Alcohol Intake: current Alcohol Intake frequency: holidays/special occasions only Drug use: Never Substance use type: does not use Adopted: No Caregiver/Support person: No Foster care: No Household members: significant other Housing: house Number of Children: 0 Communication Needs: None Education Level: college Details: Current [employer] Do you need help understanding health information?: Rarely 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[employer] Sexually active: Yes Current gender identity: female What type of physical activity do you participate in: walking Duration: 30-45 minutes/day Frequency: 1-2 times per week Seatbelt use: always Do you feel safe at home: Yes Do you feel safe in your relationship?: Yes Meds Home Medications and Allergies Home Medications Medication Instructions Recorded Confirmed Type norgestimate 0.25 mg-ethinyl 1 tab PO DAILY 08/03/18 02/24/19 History estradiol 35 mcg tablet albuterol sulfate 90 mcg/actuation 2 puff IH Q6H PRN #8.5 gm 10/11/18 02/24/19 Rx aerosol inhaler multivitamin 2 tab PO DAILY tab 02/23/19 02/24/19 History Allergies Allergy/AdvReac Type Severity Reaction Status Date / Time Sulfa (Sulfonamide Allergy Intermediate Hives Verified 02/24/19 20:54 Antibiotics) almond AdvReac Intermediate hives/itchy Verified 02/24/19 20:54 /cranky ciprofloxacin [From Cipro] AdvReac Mild Verified 02/24/19 20:54 Exam Resp Auscultation: clear to auscultation bilaterally Cardio Rate: regular rate Rhythm: regular rhythm Results Labs Result diagrams: 02/24/19 21:15 02/24/19 21:15 Labs: Laboratory Results - last 24 hr 02/24/19 02/24/19 02/24/19 21:15 21:15 21:15 WBC 9.38 RBC 4.41 Hgb 13.6 Hct 40.7 MCV 92.3 MCH 30.8 MCHC 33.4 RDW 12.2 Plt Count 339 MPV 11.2 H Immature Gran % 0.3 Neutrophils % 50.4 Lymphocytes % 35.7 Monocytes % 10.0 Eosinophils % 2.7 Basophils % 0.9 Absolute Neutrophils 4.73 Absolute Lymphocytes 3.35 Absolute Monocytes 0.94 H Absolute Eosinophils 0.25 Absolute Basophils 0.08 Sodium 140 Potassium 3.4 L Chloride 102 Carbon Dioxide 27.3 Anion Gap 10.7 BUN 10 Creatinine 0.71 Estimated GFR/1.73 m2 >= 60.00 Glucose 89 Calcium 9.1 Total Bilirubin 0.5 AST 14 L ALT 16 Alkaline Phosphatase 102 Total Protein 8.3 H Albumin 3.9 Beta HCG, Quant 4256 H Urine Color Urine Clarity Urine pH Ur Specific [place] Urine Protein Urine Ketones Urine Blood Urine Nitrite Urine Bilirubin Urine Urobilinogen Ur Leukocyte Esterase Urine RBC Urine WBC Ur Epithelial Cells Urine Crystals Urine Bacteria Urine Casts Urine Mucus Ur Culture Indicated? Urine Glucose Patient ABO/Rh O Positive Antibody Screen Negative 02/24/19 21:25 WBC RBC Hgb Hct MCV MCH MCHC RDW Plt Count MPV Immature Gran % Neutrophils % Lymphocytes % Monocytes % Eosinophils % Basophils % Absolute Neutrophils Absolute Lymphocytes Absolute Monocytes Absolute Eosinophils Absolute Basophils Sodium Potassium Chloride Carbon Dioxide Anion Gap BUN Creatinine Estimated GFR/1.73 m2 Glucose Calcium Total Bilirubin AST ALT Alkaline Phosphatase Total Protein Albumin Beta HCG, Quant Urine Color Yellow Urine Clarity Clear Urine pH 5.5 Ur Specific [place] 1.020 Urine Protein Negative Urine Ketones Negative Urine Blood Large H Urine Nitrite Negative Urine Bilirubin Negative Urine Urobilinogen 0.2 Ur Leukocyte Esterase Negative Urine RBC 20-50 H Urine WBC 0-2 Ur Epithelial Cells Moderate Urine Crystals Negative Urine Bacteria Negative Urine Casts Negative Urine Mucus Negative Ur Culture Indicated? No Urine Glucose Negative Patient ABO/Rh Antibody Screen Last Vital Signs Temp 98.1 F 02/24/19 20:51 Pulse 113 H 02/24/19 23:18 Resp 18 02/24/19 23:18 BP 110/66 02/24/19 23:18 Pulse Ox 98 02/24/19 23:18
[2019-02-25] MEDS: Lactated Ringers 1,000 ML 150 ML IV ×2 (00:28→01:23)
[2019-02-25] MEDS: ceFAZolin 2,000 MG in Normal Saline 100 ML 200 MG IVPB (00:48)
--- NOTE | 2019-02-25 00:50 | FALL_PTH ---
PATIENT: Rita Garcia LOC: OBS U#:[id number] AGE/SX: 23/F ROOM: OBS.305 RE02/25/[address]: Vinnie Perez MD : 1995 BED: A DIS: 02/25/2019 SPEC #: [id number] RECD: 02/27/19 12:39 STATUS: SOUAdrien REQ #: [id number] MATT: 02/25/19 00:[address]: Vinnie Perez DEPT: Surgical Specimen RECD BY: Joyce Shipman ENTERED: 02/27/19 12:40 SP TYPE: Fall OTHR DR: Linda Hernandez APRN Tissues: 1 - FALLOPIAN TUBE (ECTOPIC) Procedures: GROSS AND MICRO LEVEL 4 Comments: [id number]
[2019-02-25] MEDS: Bupivacaine 0.25% Pres-Free 30 ML VIAL (00:52)
[2019-02-25] MEDS: Ketorolac 30 MG/ML VIAL IVP ×2 (01:00→07:00)
--- NOTE | 2019-02-25 01:26 | NUR.NOTE ---
02/24/19 @ 2049: pt instructed to remain NPO until further notice with verbal understanding. pt states last full meal was today 02/24/19 @ 1000, pt states she ate a small bag of chips and drank one redbull today at 1830. 02/24/[address] @ [address] Perez bedside. 02/25/19 @ 0030 pilot plant operator helper bedside and report given by casualty underwriter. pt taken to OR via stretcher by pilot plant operator helper and Dr Perez. ancef 2 grams removed from pyxis and given to pilot plant operator helper per RN request who states she will start med when pt gets to the OR. Nursing Note:
[2019-02-25 01:27] VITALS: BP 121/55; PULSE 113; RESP 14; TEMP 37.2; O2SAT 98
[2019-02-25 01:32] VITALS: BP 126/61; PULSE 106; RESP 14; TEMP 37.2; O2SAT 98
[2019-02-25 01:37] VITALS: BP 124/61; PULSE 89; RESP 12; TEMP 37.2; O2SAT 98
[2019-02-25 02:00] VITALS: BP 127/83; PULSE 88; TEMP 37
--- NOTE | 2019-02-25 02:20 | NUR.NOTE ---
02/25/19 0200Nursing Note: Up to bathroom with assist, voided, tolerated well.
[2019-02-25] MEDS: Ondansetron 4 MG/2 ML VIAL IVP (02:55)
--- NOTE | 2019-02-25 03:12 | NUR.NOTE ---
02/25/19 0300 Visiting with family, states pain remains 1-2, re instructed on splinting abdomen when coughing
[2019-02-25] MEDS: oxyCODONE 5 mg/Acetaminophen 325 mg TAB PO ×2 (05:45→09:16)
--- NOTE | 2019-02-25 09:02 | PGE_ITS ---
Date of Service Date of service: 02/25/19 Time of Service: 09:02 Assessment and Plan Assessment and plan (1) Ectopic : Status: Acute Assessment and plan: s/p Laparoscopic left salpingectomy for ectopic . Making satisfactory progress. Discharge home this morning. Subjective Subjective Interval history since last seen: Doing well. Pain well controlled. Ambulatory. Tolerating regular diet. No nausea or vomiting. Objective Objective Clinical Data: Abnormal lab results 02/24/19 02/24/19 02/24/19 Range/Units 21:15 21:15 21:25 MPV 11.2 H (8.0-11.0) fL Absolute Monocytes 0.94 H (0.11-0.7) k/cumm Potassium 3.4 L (3.5-5.1) mmol/L AST 14 L (15-37) U/L Total Protein 8.3 H (6.4-8.2) g/dL Beta HCG, Quant 4256 H (1-3) mIU/mL Urine Blood Large H (Negative) Urine RBC 20-50 H (0-2) Vital Signs Temperature 98.6 F 02/25/19 02:00 Temperature Source Oral 02/25/19 02:00 Pulse 88 02/25/19 02:00 Respiratory Rate 12 02/25/19 01:37 Respiratory Effort 02/24/19 20:55 Blood Pressure 127/83 02/25/19 02:00 Blood Pressure Position Sitting 02/24/19 20:51 Pulse Oximetry 98 02/25/19 01:37 Oxygen Delivery Method Room Air 02/25/19 02:00 Oxygen Flow Rate 0 02/25/19 02:00 Pain Level 2 02/25/19 02:00 Intake & Output 02/24/19 02/24/19 02/25/19 11:59 23:59 11:59 Intake Total 1000 / 1000 1700 / 1700 Balance 1000 / 1000 1700 / 1700 Weight 131 lb 0.014 oz Intake: IV 1000 / 1000 1700 / 1700 Other: Emesis Description None Laboratory Results WBC 9.38 k/cumm (4.4-10.8) 02/24/19 21:15 RBC 4.41 m/cumm (4.00-5.20) 02/24/19 21:15 Hgb 13.6 g/dL (12.0-15.5) 02/24/19 21:15 Hct 40.7 % (36.0-46.0) 02/24/19 21:15 MCV 92.3 fL (80-95) 02/24/19 21:15 MCH 30.8 pg (27.0-33.0) 02/24/19 21:15 MCHC 33.4 g/dL (32.0-36.0) 02/24/19 21:15 RDW 12.2 % (11.7-14.6) 02/24/19 21:15 Plt Count 339 x1000/uL (130-400) 02/24/19 21:15 MPV 11.2 fL (8.0-11.0) H 02/24/19 21:15 Immature Gran % 0.3 02/24/19 21:15 Neutrophils % 50.4 02/24/19 21:15 Lymphocytes % 35.7 02/24/19 21:15 Monocytes % 10.0 02/24/19 21:15 Eosinophils % 2.7 02/24/19 21:15 Basophils % 0.9 02/24/19 21:15 Absolute Neutrophils 4.73 k/cumm (1.2-6.7) 02/24/19 21:15 Absolute Lymphocytes 3.35 k/cumm (1.2-3.4) 02/24/19 21:15 Absolute Monocytes 0.94 k/cumm (0.11-0.7) H 02/24/19 21:15 Absolute Eosinophils 0.25 k/cumm (0.0-0.7) 02/24/19 21:15 Absolute Basophils 0.08 k/cumm (0.0-0.2) 02/24/19 21:15 Sodium 140 mmol/L (136-145) 02/24/19 21:15 Potassium 3.4 mmol/L (3.5-5.1) L 02/24/19 21:15 Chloride 102 mmol/L (98-107) 02/24/19 21:15 Carbon Dioxide 27.3 mmol/L (21.0-32.0) 02/24/19 21:15 Anion Gap 10.7 mmol/L (3-11) 02/24/19 21:15 BUN 10 mg/dL (7-18) 02/24/19 21:15 Creatinine 0.71 mg/dL (0.55-1.02) 02/24/19 21:15 Estimated GFR/1.73 m2 >= 60.00 (mL/min/1.73m2) 02/24/19 21:15 Glucose 89 mg/dL (70-100) 02/24/19 21:15 Calcium 9.1 mg/dL (8.5-10.1) 02/24/19 21:15 Total Bilirubin 0.5 mg/dL (0.2-1.0) 02/24/19 21:15 AST 14 U/L (15-37) L 02/24/19 21:15 ALT 16 U/L (14-59) 02/24/19 21:15 Alkaline Phosphatase 102 U/L (46-116) 02/24/19 21:15 Total Protein 8.3 g/dL (6.4-8.2) H 02/24/19 21:15 Albumin 3.9 g/dL (3.4-5.0) 02/24/19 21:15 Beta HCG, Quant 4256 mIU/mL (1-3) H 02/24/19 21:15 Urine Color Yellow (Yellow) 02/24/19 21:25 Urine Clarity Clear (Clear) 02/24/19 21:25 Urine pH 5.5 (5-8) 02/24/19 21:25 Ur Specific [place] 1.020 (1.005-1.025) 02/24/19 21:25 Urine Protein Negative mg/dL (Negative) 02/24/19 21:25 Urine Ketones Negative mg/dL (Negative) 02/24/19 21:25 Urine Blood Large (Negative) H 02/24/19 21:25 Urine Nitrite Negative (Negative) 02/24/19 21:25 Urine Bilirubin Negative (Negative) 02/24/19 21:25 Urine Urobilinogen 0.2 EU/dL (Up TO 0.2) 02/24/19 21:25 Ur Leukocyte Esterase Negative (Negative) 02/24/19 21:25 Urine RBC 20-50 (0-2) H 02/24/19 21:25 Urine WBC 0-2 HPF (0-5) 02/24/19 21:25 Ur Epithelial Cells Moderate HPF (Negative) 02/24/19 21:25 Urine Crystals Negative HPF (Negative) 02/24/19 21:25 Urine Bacteria Negative HPF (Negative) 02/24/19 21:25 Urine Casts Negative LPF (Negative) 02/24/19 21:25 Urine Mucus Negative (Negative) 02/24/19 21:25 Ur Culture Indicated? No 02/24/19 21:25 Urine Glucose Negative mg/dL (Negative) 02/24/19 21:25 Patient ABO/Rh O Positive 02/24/19 21:15 Antibody Screen Negative 02/24/19 21:15
[2019-02-25 10:17] VITALS: BP 109/66; PULSE 100; RESP 14; TEMP 36.9; O2SAT 98
--- NOTE | 2019-02-25 15:14 | W.PM.OP ---
Date of service: 02/25/19 Time of Service: 15:14 Operative Note Operative Note DATE OF PROCEDURE: 02/25/19 PRE-OP DIAGNOSIS: Left ectopic POST-OP DIAGNOSIS: same PROCEDURE: Laparoscopic left salpingectomy for ectopic SURGEON: Vinnie Perez ASSISTING SURGEON: Amee Hoffmann ANESTHESIA: GETA ESTIMATED BLOOD LOSS: 10 PATHOLOGY: other (Left fallopian tube with ectopic ) COMPLICATIONS: None Patient was transported to: PACU Patient's condition: stable Findings: 1. Large 3 to 4 cm ectopic almost completely occupying the left fallopian tube. 2. Normal-appearing left ovary, right tube right ovary and uterus. Procedure Description: The patient was taken to the operating room and after adequate general anesthesia the patient had been placed in supine position. The patient was prepped and draped in usual sterile manner. The skin and subcutaneous tissues at the umbilicus were infiltrated with 0.25% Marcaine solution. A small infraumbilical skin incision was then made with a #15 blade scalpel. Sharp dissection was carried down to the underlying fascia. The fascia was grasped and elevated with 2 Bobby clamps. The fascia was incised with the 15 blade scalpel and the peritoneum was entered sharply with hemostats. 2 extracted were placed. 2 sutures of 0 Vicryl placed on either side of the fascial incision. The 10 mm balloon trocar was advanced through the incision and secured in place. A pneumoperitoneum to approximately 50 mmHg was established with carbon dioxide. The 10 mm laparoscope was inserted. Two 5 mm trochars were placed in the right lower and left lower quadrant both under direct visualization. There was only a small hemoperitoneum noted. The right tube and ovary were noted to be normal in appearance. Uterus is normal in appearance. The left fallopian tube displayed a large ectopic occupying the majority of the tube. It was not amenable to linear salpingostomy. Dissection was carried across the mesosalpinx on the left with the LigaSure device. Dissection was carried to the proximal fallopian tube which was transected. All sites of dissection were noted to be hemostatic. A 10 mm Endo Catch bag was inserted and the ectopic retrieved. The 5 mm ports were removed under direct visualization. The abdomen was desufflated. The umbilical trocar was removed as was the ectopic . The fascia at the umbilicus was closed with 2 previously placed sutures of 0 Vicryl. A second [id number] suture was used to close the defect on the fascia. Each incision was closed with interrupted sutures of 4-0 Monocryl and Dermabond was applied. The procedure was concluded at this point. Sponge, lap and needle counts were correct at the conclusion of the procedure. The patient was transferred to PACU in stable condition.
== END 2019-02-25 10:15 | disposition home or self-care (01) ==
LOC: ER 02-25 00:06 → SUR 02-25 00:30 → OBS 02-25 02:11
PROVIDERS: Physician Assistant; Admitting Provider Obstetrics & Gynecology; Emergency Provider Emergency Medicine; PCP Nurse Practitioner Family; Visit Provider Obstetrics & Gynecology
PROC: 10T24ZZ Resection of Products of Conception, Ectopic, Percutaneous Endoscopic Approach (ICD-10-PCS; CPT 58661; principal; 2019-02-25 00:05)
DX: O00.102 Left tubal pregnancy without intrauterine pregnancy (principal); K66.1 Hemoperitoneum; Q79.62 Hypermobile Ehlers-Danlos syndrome
CPT/HCPCS: 59151; 36415; 80053; 86850; 86900; 86901; 88305; 96361; 96374; 96375; 99223; 99233; 99285; 76830; 76856; 81003; 81015; 84702; 85025; 99284; J0131; J0690; J1100; J1885; J2250; J2405; J3010

== ENCOUNTER 2019-03-06 15:05 | Outpatient (REF) | payer BC, SELFPAY ==
[2019-03-06 15:22] LABS: Bilirubin Negative (Negative); Blood Small (Negative); Clarity Clear (Clear); Glucose Negative (Negative); Ketones Negative (Negative); Leukocyte Esterase Small (Negative); Nitrite Negative (Negative); Urobilinogen 0.2 EU/dL (Up TO 0.2); pH 5.5 (5-8)
[2019-03-06 15:32] LABS: Bacteria Negative HPF (Negative); C & S Indicated? Yes; Casts Negative LPF (Negative); Crystals Negative HPF (Negative); Epithelial Cells Few HPF (Negative); Mucus Negative (Negative); Other Cells Few Renal (Negative); RBC Negative (0-2); WBC >50 HPF (0-5)
== END 2019-03-06 15:25 ==
LOC: LBN 15:05
PROVIDERS: PCP Nurse Practitioner Family; Visit Provider Nurse Practitioner Gerontology
DX: N39.0 Urinary tract infection, site not specified (principal)
CPT/HCPCS: 81003; 81015; 87086

== ENCOUNTER 2019-05-04 16:16 | Emergency (ER) | payer BC, SELFPAY ==
[2019-05-04] VITALS (26 sets, daily range): BP systolic 94–125; BP diastolic 45–78; PULSE 67–94; RESP 12–26; TEMP 36.7; O2SAT 96–100
--- NOTE | 2019-05-04 17:03 | W.ED.GENAD ---
Discharge Plan Disposition Patient Disposition: HOME Condition: Improving Discharge Details Chief Complaint: Dizzy/Sync Clinical Impression: Syncope Primary Care Provider: Linda Hernandez ED Provider: Jennifer Celis Home Meds and New Rx's Prescriptions: No Action Mirena 20 mcg/24 hours (5 yrs) 52 mg intrauterine device 1 device IY ONCE RF: 0 multivitamin Tablet 2 tab PO DAILY RF: 0 albuterol sulfate 90 mcg/actuation HFA aerosol inhaler 2 puff IH Q6H PRN (Reason: shortness of breath or wheezing) Qty: 8.5 RF: 5 Discharge Instructions Instructions: Syncope (ED) Additional Instructions: Drink plenty of fluids. Rest activities as tolerated. Keep Holter monitor on for the next 48 hours and follow instructions provided. Follow-up closely with your primary care doctor. Return for any alarming symptoms, worsening, dizziness, feeling of passing out or sooner if needed Stand Alone Forms: Work Release Discharge Data Discharge Date/Time-TO BE ENTERED AT DEPARTURE: 05/04/19 20:20 Medical Decision Making Is a 23-year-old patient who presents for a syncopal episode which occurred at work. 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 Patient reports this was witnessed by coworker, who assisted the patient to sitting position against a wall. Patient reported a feeling of having a second syncopal episode but did not pass out. Patient reports nausea is her only persistent symptom at this time. Patient does report a history of syncopal episodes in the past. Patient reports a very similar experience. 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 Patient does report a significant amount of stress currently as she recently broke up with her boyfriend after having an ectopic . She is financially very stressed and is now unwillingly going to have to move back to her home town in [place] due to financial reasons. Patient denies any chest pain, difficulty breathing or shortness of breath or wheezing at this time. Patient denies any headache or dizziness at this time. Patient has benign physical exam at this time. Initial orthostatic vital signs were normal. Patient's EKG reveals regular sinus rhythm with a rate of 78. No finding of ectopy. No ST segment changes. Normal intervals, normal axis. This was reviewed with Dr. Cardenas in the setting of syncope. Given patient's Ehler Danlos history will do chest x-ray to be sure there is no obvious cardiomegaly or widening of the vessels. Chest x-ray unremarkable. Patient feeling symptomatically improved. We did discuss the use of a Holter monitor. Patient does agree with plan of care to use Holter monitor. Patient also encouraged prompt follow-up with PCP. At this time patient's vital signs remain normal. Labs reassuring, electrolytes unremarkable. No identifiable medical emergency noted at this time. Patient is requesting discharge home with close follow-up with PCP. The patient was stable and requested discharge. Prior to discharge, my usual and customary return precautions were reviewed with the patient - this included follow-up instructions and reasons to return to the Emergency Department if conditions worsens, does not improve as expected, or other new concerns arise. [facility] General Date/Time Provider Initiated Documentation: 05/04/19 16:22. HPI Narrative: Is a 23-year-old patient who presents for syncopal episode which occurred today at work. Patient was crouching to the ground to put an albuterol inhaler on the ground and she felt she began to experience tunnel vision, darkening of her vision she reports a associated chest pressure and felt she could not take a deep breath then reportedly passed out. Patient denies any resulting pain after her fall. Patient reports she felt persistently nauseous and somewhat lightheaded after her brief episode of syncope which was witnessed by coworker who brought her to lean against the wall and sit on the floor. Patient remained persistently nauseous and somewhat lightheaded. Coworker gave her some chocolate thinking her blood sugar may have been low. Patient reports she felt as if she was can have a significant syncopal episode but did not. Patient denies any chest pain, difficulty breathing or shortness of breath at this time. Patient denied obvious palpitations. Patient denies headache. Denies fever or chills. Has had no recent illness. Has been eating and drinking normally. Feels well hydrated. Has been urinating normally. Patient does report a history of syncopal episodes in the past and they felt very similar to this episode today. Patient is under significant amount of stress as she recently broke up with her boyfriend after she had an ectopic and now due to finances will have to move back to her home town in [place]. At this time patient's only complaint is mild nausea Related Data Home Medications Medication Instructions Recorded Confirmed albuterol sulfate 90 mcg/actuation 2 puff IH Q6H PRN #8.5 gm 10/11/18 05/04/19 aerosol inhaler multivitamin 2 tab PO DAILY tab 02/23/19 05/04/19 levonorgestrel 20 mcg/24 hours (5 1 device IY ONCE 03/02/19 05/04/19 yrs) 52 mg intrauterine device Previous Rx's Medication Instructions Recorded albuterol sulfate 90 mcg/actuation 2 puff IH Q6H PRN #8.5 gm 10/11/18 aerosol inhaler Allergies Allergy/AdvReac Type Severity Reaction Status Date / Time Sulfa (Sulfonamide Allergy Intermediate Hives Verified 05/08/19 14:29 Antibiotics) almond AdvReac Intermediate hives/itchy Verified 05/08/19 14:29 /crandanuta ciprofloxacin [From Cipro] AdvReac Intermediate Verified 05/08/19 14:29 General Stated Complaint: Dizzy/Sync CRISTINA: 3 Review of Systems All systems reviewed & are unremarkable except as noted in HPI and below Constitutional Constitutional: Denies chills, Denies fatigue, Denies fever(s), Denies frequent falls, Denies headache(s), Denies malaise, Denies poor appetite and Denies weakness ENT Ears, Nose, Mouth, and Throat: Denies vertigo, Denies headache(s), Denies nasal congestion and Denies sore throat Cardiovascular Cardiovascular: Denies chest pain, Denies chest pain at rest, Denies chest pain with activity, Reports syncope, Reports lightheadedness, Denies radiating jaw, neck or arm pain, Denies dyspnea and Reports other Respiratory Respiratory: Denies cough, Denies pain on inspiration, Denies pain with cough, Denies dyspnea and Denies wheezing Gastrointestinal Gastrointestinal: Denies abdominal pain, Reports nausea and Denies vomiting Genitourinary Genitourinary: Denies dysuria Musculoskeletal Musculoskeletal: Denies numbness and Denies tingling Neurologic Neurologic: Denies burning sensations, Denies confusion, Denies vertigo, Reports syncope, Denies frequent falls, Denies headache(s), Denies lack of coordination, Denies focal weakness, Denies numbness, Denies tingling and Denies weakness Psychiatric Psychiatric: Denies confusion Endocrine Endocrine: Denies fatigue Allergic/Immunologic Allergic/Immunologic: Denies wheezing ON LICENSE OF [facility] Medical History Anxiety (Inactive) Depression (Inactive) Ectopic (Resolved) 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, 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 sub-type) 01/18/2018 [facility] [place] Exercise-induced asthma (Chronic) Functional heart murmur (Chronic 02/02/17) Gastroesophageal reflux disease (Chronic 09/03/17) Migraine without aura and without status migrainosus, not intractable (Chronic) Pelvic pain (Chronic 04/23/17) Recurrent UTI (urinary tract infection) (Chronic) Uveitis (Chronic) Managed by labor relations director; Treated with methotrexate Vascular headache (Chronic 02/02/17) Social History Smoking/Tobacco Use Status: Never Alcohol Intake: current Alcohol Intake frequency: holidays/special occasions only Drug use: Never Substance use type: does not use Adopted: No Caregiver/Support person: No Foster care: No Household members: significant other Housing: house Number of Children: 0 Communication Needs: None Education Level: college Details: Current [employer] Do you need help understanding health information?: Rarely 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 Well hydrated. Alert and alert. HENMT: Head nomocephalic, normal to inspection. Atraumatic. Hearing grossly normal. External ear canal no erythema or swelling. TM with erythema bilaterally. Nose normal to inspection. No rhinnorhea. Normal facial exam. Oral mucosa normal. Tounge normal. Dentition normal. Mild pharyngeal erythema. Uvula midline. EYES: General normal appearance. Alignment normal. Eyelids normal. Conjunctiva normal. Sclera normal. PERRL. NECK: Normal visual inspection. FROM. Cervical lymphadenopathy present. Trachea midline. No Midline tenderness. CHEST: Normal insepection of the chest. RESP: Normal respiratory effort. Speaking full sentences. No cough. No wheezing. No retractions. Clear to auscaltation. Breath sound equal and present bilaterally. CARDIO: No JVD. Normal PMI. Regular Rate. Regular Rhythm. Normal peripheral pulses. GI: Normal inspection of abdomen. No distension. Soft. Nontender. Bowel sounds present in all 4 quadrants. No rebound. No gaurding. MUSCULOSKELETAL: Normal Gait. FROM of all extremities. Distal neurovascularly intact. Sensation intact distally. Course Vital Signs Vital signs: Vital Signs Temperature 36.7 C 05/04/19 16:35 Pulse 82 05/04/19 16:35 Respiratory Rate 16 05/04/19 16:35 Blood Pressure 113/53 L 05/04/19 16:35 Pulse Oximetry 98 05/04/19 16:35 Temperature 36.7 C 05/04/19 16:35 Temperature Source Skin 05/04/19 16:35 Pulse 82 05/04/19 16:35 Respiratory Rate 16 05/04/19 16:35 Respiratory Effort Non-Labored 05/04/19 16:44 Respiratory Depth Normal 05/04/19 16:44 Respiratory Pattern Normal 05/04/19 16:44 Blood Pressure 113/53 L 05/04/19 16:35 Blood Pressure Position Sitting 05/04/19 16:35 Pulse Oximetry 98 05/04/19 16:35 Oxygen Delivery Method Room Air 05/04/19 16:35 Oxygen Flow Rate 0 05/04/19 16:35 Pain Level 0 05/04/19 16:35 Lab/Test Results Lab/Test Results: POC- Test(urine) Negative
[2019-05-04 17:14] LABS: Bilirubin Negative (Negative); Blood Negative (Negative); Clarity Clear (Clear); Glucose Negative (Negative); Ketones Negative (Negative); Leukocyte Esterase Negative (Negative); Nitrite Negative (Negative); Urobilinogen 0.2 EU/dL (Up TO 0.2)
[2019-05-04] MEDS: Ondansetron 4 MG/2 ML VIAL IVP (17:17)
[2019-05-04] MEDS: Normal Saline 1,000 ML 1000 ML IV (17:18)
[2019-05-04 17:36] LABS: Abs Immature Grans 0.02 k/cumm (0.0-0.09); Absolute Basophil Count 0.06 k/cumm (0.0-0.2); Absolute Eosinophil Count 0.28 k/cumm (0.0-0.7); Absolute Lymphocyte Count 2.58 k/cumm (1.2-3.4); Absolute Monocyte Count 0.69 k/cumm (0.11-0.7); Basophils % 0.8; Eosinophils % 3.8; HCT 37.9 % (36.0-46.0); HGB 12.7 g/dL (12.0-15.5); Immature Grans % 0.3; Lymphocytes % 35.2; Mean Corp. HGB Concentration 33.5 g/dL (32.0-36.0); Mean Corpuscular Volume 92.4 fL (80-95); Mean Platelet Volume 11.1 fL (8.0-11.0); Monocytes % 9.4; Neutrophils % 50.5; Platelet Count 253 x1000/uL (130-400); RBC Distribution Width 12.1 % (11.7-14.6); White Blood Cell Count 7.33 k/cumm (4.4-10.8)
[2019-05-04 17:44] LABS: HCG Qual (Serum) Negative
[2019-05-04 18:08] LABS: ALT 23 U/L (14-59); AST 16 U/L (15-37); Albumin 3.7 g/dL (3.4-5.0); Alkaline Phosphatase 94 U/L (46-116); Anion Gap 8.3 mmol/L (3-11); BUN 14 mg/dL (7-18); Bilirubin, Total 0.8 mg/dL (0.2-1.0); CO2 28.7 mmol/L (21.0-32.0); CREATININE 0.57 mg/dL (0.55-1.02); Calcium 8.5 mg/dL (8.5-10.1); Chloride 106 mmol/L (98-107); Glucose 92 mg/dL (74-106); Potassium 3.5 mmol/L (3.5-5.1); Sodium 143 mmol/L (136-145); Total Protein 7.2 g/dL (6.4-8.2)
--- NOTE | 2019-05-04 19:35 | DI.RAD_ITS ---
EXAM: XR CHEST 2V PA LATERAL XR CHEST 2V PA LATERAL CLINICAL HISTORY: syncope syncope TECHNIQUE: 2D digital imaging was performed. COMPARISON: XR CHEST 2V PA LATERAL from 07/27/2018 FINDINGS: The heart is not enlarged. The lungs are clear and well expanded. No pleural effusion seen. Mediastin al contours appear intact. IMPRESSION: Normal chest
--- NOTE | 2019-05-04 19:40 | DI.VRAD_ITS ---
PROCEDURE INFORMATION: Exam: XR Chest, 2 Views Exam date and time: 05/04/2019 7:19 PM Age: 23 years old Clinical indication: Other: Syncope TECHNIQUE: Imaging protocol: XR of the chest Views: 2 views. COMPARISON: CR XR CHEST 2V PA LATERAL 07/27/2018 7:55 PM FINDINGS: Lungs: Unremarkable. No consolidation. Pleural space: Unremarkable. No pleural effusion. No pneumothorax. Heart/Mediastinum: Unremarkable. No cardiomegaly. Bones/joints: Unremarkable. IMPRESSION: No acute findings. Dictated and Authenticated by: Jimmy Cordero MD. Ordering:MIKE Rodriguez MD
== END 2019-05-04 20:20 | disposition home or self-care (01) ==
PROVIDERS: Nurse Practitioner Adult Health; Emergency Provider Physician Assistant; PCP Nurse Practitioner Family
DX: R55 Syncope and collapse; R11.0 Nausea; Q79.60 Ehlers-Danlos syndrome, unspecified
CPT/HCPCS: 36415; 80053; 81025; 93005; 96361; 96374; 99285; 71046; 81003; 84443; 84703; 85025; 93010; J2405

== ENCOUNTER → 2019-05-05 11:16 | Outpatient (CLI) | payer BC, SELFPAY ==
--- NOTE | 2019-05-11 08:39 | W.HOLTRPT ---
Date of service: 05/11/19 Time of Service: 08:39 Holter Monitor Report Holter Monitor Note: The patient was monitored for 2 days 21 minutes . Rhythm throughout was sinus. Average heart rate was 83/minute. ( Range 49 to140). There were no ventricular or supraventricular dysrhythmias. There was no bradycardia. There were no pauses
== END ==
PROVIDERS: PCP Nurse Practitioner Family; Visit Provider Nurse Practitioner Family
DX: R55 Syncope and collapse (principal)
CPT/HCPCS: 93225

== ENCOUNTER → 2019-05-10 11:12 | Outpatient (CLI) | payer BC, SELFPAY | PROVIDERS: PCP Nurse Practitioner Family; Visit Provider Nurse Practitioner Family | DX: R55 Syncope and collapse (principal) | CPT/HCPCS: 93226 ==

== ENCOUNTER 2019-05-16 13:42 | Outpatient (REF) | payer BC, SELFPAY | END 2019-05-16 14:02 | LOC: LBN 13:42 | PROVIDERS: PCP Nurse Practitioner Family; Visit Provider Nurse Practitioner Gerontology | DX: N39.0 Urinary tract infection, site not specified (principal) | CPT/HCPCS: 87086 ==

== ENCOUNTER 2019-05-23 08:56 | Outpatient (REF) | payer BC, SELFPAY | END 2019-05-23 09:16 | LOC: LBN 08:56 | PROVIDERS: PCP Nurse Practitioner Family; Visit Provider Internal Medicine | DX: R30.0 Dysuria (principal) | CPT/HCPCS: 87077; 87086; 87186 ==